=== PATIENT | female | born 1970 | race Two or more races ===

== ENCOUNTER → 2017-09-28 | Emergency (ER) | payer OTHER ==
[~2017-09-28] VITALS: Ht 157.5 cm; Wt 89.8 kg
== END | disposition home or self-care (01) ==
LOC: ER 13:03
DX: B34.9 Viral infection, unspecified (principal)

== ENCOUNTER 2019-09-22 11:40 | Outpatient (CLI) | payer BC | END 2019-09-22 11:59 | disposition home or self-care (01) | LOC: LAB 11:40 | DX: J11.1 Influenza due to unidentified influenza virus with other respiratory manifestations (principal); J06.9 Acute upper respiratory infection, unspecified ==